=== PATIENT | male | born 1965 | race Caucasian/White ===

== ENCOUNTER 2019-03-03 14:25 | Emergency (ER) | payer OTHER ==
[2019-03-03 15:03] VITALS: BP 124/90
--- NOTE | 2019-03-03 15:36 | UC ---
Dental HPI - HPI Summary HPI Summary: Patient is a 53-year-old male, history of chronic pain, here with dental complaints. Patient is in the process of getting all of his teeth removed due to poor dentition. Patient was on antibiotics until 4 days ago for a left lower dental infection. Since stopping antibiotics, patient's pain has gotten worse. In addition, patient's had pain at tooth number 8 as there is an exposed root. Patient called his dentist 2 days ago who told him to come to the urgent care if he wants further treatment. Patient has appointment in 8 days with his dentist for further evaluation. Patient has no fever, chills, difficulty swallowing, change in voice. Medications reviewed - History of Current Complaint Chief Complaint: UCDentalProblem Stated Complaint: DENTAL PAIN Time Seen by Provider: 03/03/19 15:15 Hx Obtained From: Patient Onset/Duration: Gradual Onset Severity: Moderate Pain Intensity: 10 - Allergies/Home Medications Allergies/Adverse Reactions: Allergies Allergy/AdvReac Type Severity Reaction Status Date / Time No Known Allergies Allergy Verified 03/03/19 15:01 Home Medications: Home Medications Atorvastatin* [Lipitor 10 MG*] 1 tab PO DAILY 03/03/19 [History Confirmed ] Celecoxib [Celebrex 50 MG CAP] 1 tab PO DAILY 03/03/19 [History Confirmed ] PMH/Surg Hx/FS Hx/Imm Hx Previously Healthy: Yes - Surgical History Surgical History: Yes Surgery Procedure, Year, and Place: Rt GREAT TOE - BUNIONECTOMY. SINUS SURGERY 2014 - Family History Known Family History: Positive: Non-Contributory - Social History Alcohol Use: None Substance Use Type: None Smoking Status (MU): Never Smoked Tobacco Review of Systems All Other Systems Reviewed And Are Negative: Yes Constitutional: Negative: Fever, Chills Eyes: Negative: Blurred Vision, Drainage ENT: Negative: Sore Throat, Ear Ache Respiratory: Negative: Shortness Of Breath, Cough Physical Exam - Summary Physical Exam Summary: Vital Signs Reviewed: Yes A+Ox3, no distress Eyes: Conjunctiva Clear ENT: 8 teeth on both the top and the bottom. Tooth #8 with exposed root. Patient has tenderness in his lower teeth with percussion. No obvious area of swelling, fluctuance, induration. neck: supple Respiratory: Positive: No respiratory distress, No accessory muscle use Cardiovascular: skin color reflect adequate perfusion Musculoskeletal Exam: NUNEZ x 4 without difficulty Neurological: Positive: Alert, ambulatory without difficulty Triage Information Reviewed: Yes Vital Signs: Initial Vital Signs Temp 98.5 F 03/03/19 14:50 Pulse 75 03/03/19 14:50 Resp 16 03/03/19 14:50 BP 124/90 03/03/19 14:50 Pulse Ox 100 03/03/19 14:50 Dental Complaint Course/Dx - Course Course Of Treatment: Patient is here with dental pain with a complex recent dental history. Patient stopped antibiotics 4 days ago with worsening of his pain since then. Patient has no drainable abscess. Patient is evidence of deep space neck infection. Patient be treated with amoxicillin for that and he is follow up with his dentist in 8 days. In addition, patient has exposed nerve root on his upper incisor. Patient requested pain medication for that so he is given a small prescription of tramadol. - Differential Dx/Diagnosis Differential Diagnosis/Dx: Dental Abscess, Dental Caries, Fractured Tooth, Odontogenic Pain, Peridontic Disease Provider Diagnosis: Pain, dental Discharge - Sign-Out/Discharge Documenting (check all that apply): Patient Departure All imaging exams completed and their final reports reviewed: No Studies - Discharge Plan Condition: Stable Disposition: HOME Prescriptions: Amoxicillin PO (*) [Amoxicillin 875 MG (*)] 875 mg PO BID 7 Days #14 tab traMADol TAB* [Ultram*] 50 mg PO Q12H PRN #12 tab MDD 2 tabs PRN Reason: Pain - Severe Patient Education Materials: Toothache (ED) Referrals: No Primary Care Phys,NOPCP [Primary Care Provider] - Additional Instructions: Please follow-up on 03/11/19 with your dentist at your scheduled appointment Please take your medications as prescribed - Billing Disposition and Condition Condition: STABLE Disposition: Home
== END 2019-03-03 15:45 | disposition home or self-care (01) ==
LOC: UCEAST 14:25
DX: K08.89 Other specified disorders of teeth and supporting structures (principal)
CPT/HCPCS: 99212; G0463